=== PATIENT | female | born 1955 | race Two or more races ===

== ENCOUNTER 2023-07-29 10:15 | Inpatient (IN) | payer OTHER ==
[~2023-07-29] VITALS: Ht 149.9 cm; Wt 71.7 kg
[2023-08-07] MEDS ORDERED: CEFOXITIN SODIUM 2,000 MG VIAL IV ONE ×2 (06:43→08:30)
[2023-08-07] MEDS ORDERED: POVIDONE-IODINE 118 ML BOTT TOP ONE ×2 (07:05→08:30)
[2023-08-07] MEDS ORDERED: THROMBIN,HU/FIBRINOGEN/CALCIUM 10 ML SYRINGE TOP ONE ×2 (07:54→08:30)
[2023-08-07] MEDS ORDERED: MIRTAZAPINE45 MG (08:50)
[2023-08-07] MEDS ORDERED: BUPROPION XL150 MG (08:50)
[2023-08-07] MEDS ORDERED: BUPROPION XL300 MG (08:50)
[2023-08-07] MEDS ORDERED: RESTORIL30 MG (08:50)
[2023-08-07] MEDS ORDERED: FAMOTIDINE40 MG (08:50)
[2023-08-07] MEDS ORDERED: ALPRAZOLAM2 MG (08:50)
[2023-08-07] MEDS ORDERED: METOPROLOL SUCC50 MG (08:50)
[2023-08-07] MEDS ORDERED: DICLOFENAC POTA50 MG (08:51)
[2023-08-07] MEDS ORDERED: AMLODIPINE BESYL5 MG (08:51)
[2023-08-07] MEDS ORDERED: HYDROCHLOROTH12.5 MG (08:51)
[2023-08-07] MEDS ORDERED: LEVO-T25 MCG PO (08:51)
[2023-08-07] MEDS ORDERED: LOSARTAN POTAS100 MG (08:51)
[2023-08-07] MEDS ORDERED: ATORVASTATIN CA20 MG (08:51)
[2023-08-07] MEDS ORDERED: RINGERS SOLUTION,LACTATED 1,000 ML IV SCH (09:45)
[2023-08-07] MEDS ORDERED: MORPHINE SULFATE 4 MG/ML VIAL IV PRN (09:45)
[2023-08-07] MEDS ORDERED: FAMOTIDINE/PF 20 MG/2 ML VIAL IV SCH (09:45)
[2023-08-07] MEDS ORDERED: ONDANSETRON HCL 2 MG/ML VIAL IV PRN (09:45)
[2023-08-07] MEDS ORDERED: FAMOTIDINE/PF 20 MG/2 ML VIAL ONE (11:13)
[2023-08-07 11:57] LABS: HEMATOCRIT 39.8 % (36.0-45.00); HEMOGLOBIN 13.6 g/dL (12.0-15.00); MEAN CELL VOLUME 97.5 fL (80.00-100.00); MEAN CORPUSCULAR HEMOGLOBIN 33.2 pg (27.00-32.0); PLATELET COUNT 167 K/uL (150-450); RED BLOOD COUNT 4.08 M/uL (4.00-6.00); RED CELL DISTRIBUTION WIDTH 13.7 % (11.5-14.5)
[2023-08-07 14:09] LABS: CALCIUM 9.3 mg/dL (8.5-10.1); CREATININE SERUM 0.96 mg/dL (0.55-1.02); GFR 57.97; POTASSIUM 4.03 mEq/L (3.5-5.1)
[2023-08-07] MEDS ORDERED: ENALAPRILAT DIHYDRATE 2.5 MG/2 ML VIAL IV PRN (15:15)
[2023-08-07] MEDS ORDERED: KETOROLAC TROMETHAMINE 30 MG VIAL IV SCH (17:00)
[2023-08-07] MEDS ORDERED: ATORVASTATIN CALCIUM 20 MG TABLET PO SCH (17:00)
[2023-08-07] MEDS ORDERED: CEFOXITIN SODIUM 2,000 MG VIAL IV SCH (17:00)
[2023-08-07] MEDS ORDERED: TEMAZEPAM 15 MG CAPSULE PO SCH (21:00)
[2023-08-08 04:08] LABS: HEMATOCRIT 37.6 % (36.0-45.00); HEMOGLOBIN 12.5 g/dL (12.0-15.00); MEAN CELL VOLUME 96.3 fL (80.00-100.00); MEAN CORPUSCULAR HGB CONC 33.2 g/dl (32.0-36.0); PLATELET COUNT 138 K/uL (150-450)
[2023-08-08 04:27] LABS: CREATININE SERUM 1.02 mg/dL (0.55-1.02); GFR 54.05; POTASSIUM 4.04 mEq/L (3.5-5.1)
[2023-08-08] MEDS ORDERED: LEVOTHYROXINE SODIUM 25 MCG TABLET PO SCH (06:00)
[2023-08-08] MEDS ORDERED: BUPROPION HCL 150 MG TABLET.SA PO SCH (09:00)
[2023-08-08] MEDS ORDERED: METOPROLOL SUCCINATE 50 MG TAB.SR.24H PO SCH (09:00)
[2023-08-08] MEDS ORDERED: METOCLOPRAMIDE HCL 5 MG/ML VIAL IV SCH (09:00)
[2023-08-08] MEDS ORDERED: ENOXAPARIN SODIUM 40 MG/0.4 ML SYRINGE SUBCUTANEO SCH (09:00)
[2023-08-08] MEDS ORDERED: LOSARTAN POTASSIUM 100 MG TABLET PO SCH (09:00)
[2023-08-08 19:19] LABS: HEMATOCRIT 37.8 % (36.0-45.00); HEMOGLOBIN 12.7 g/dL (12.0-15.00); MEAN CELL VOLUME 97.6 fL (80.00-100.00); MEAN CORPUSCULAR HEMOGLOBIN 32.8 pg (27.00-32.0); MEAN CORPUSCULAR HGB CONC 33.6 g/dl (32.0-36.0); PLATELET COUNT 137 K/uL (150-450); RED BLOOD COUNT 3.87 M/uL (4.00-6.00); RED CELL DISTRIBUTION WIDTH 13.5 % (11.5-14.5)
[2023-08-08 19:40] LABS: CALCIUM 9.1 mg/dL (8.5-10.1); CREATININE SERUM 1.21 mg/dL (0.55-1.02); GFR 44.38; POTASSIUM 3.92 mEq/L (3.5-5.1)
[2023-08-09 02:39] LABS: HEMATOCRIT 29.7 % (36.0-45.00); HEMOGLOBIN 10.2 g/dL (12.0-15.00); MEAN CELL VOLUME 96.9 fL (80.00-100.00); MEAN CORPUSCULAR HEMOGLOBIN 33.4 pg (27.00-32.0); MEAN CORPUSCULAR HGB CONC 34.4 g/dl (32.0-36.0); RED BLOOD COUNT 3.07 M/uL (4.00-6.00); RED CELL DISTRIBUTION WIDTH 13.5 % (11.5-14.5)
[2023-08-09 02:40] LABS: PLATELET COUNT 106 K/uL (150-450)
[2023-08-09 02:55] LABS: CALCIUM 8.6 mg/dL (8.5-10.1); CREATININE SERUM 0.78 mg/dL (0.55-1.02); GFR 73.66; POTASSIUM 3.61 mEq/L (3.5-5.1)
== END 2023-08-09 11:21 | disposition home or self-care (01) | DRG 749 ==
LOC: OB/GYN 08-07 05:10 → O/R 08-07 05:10 → OB/GYN 08-07 07:00
PROVIDERS: Obstetrics & Gynecology; ADMIT Obstetrics & Gynecology Gynecologic Oncology; ATTEND Obstetrics & Gynecology Gynecologic Oncology
PROC: 07BC0ZZ Excision of Pelvis Lymphatic, Open Approach (ICD-10-PCS; 2023-08-07)
PROC: 07BD0ZZ Excision of Aortic Lymphatic, Open Approach (ICD-10-PCS; 2023-08-07)
PROC: 0DBN0ZZ Excision of Sigmoid Colon, Open Approach (ICD-10-PCS; 2023-08-07)
PROC: 0DBP0ZZ Excision of Rectum, Open Approach (ICD-10-PCS; 2023-08-07)
PROC: 0DTU0ZZ Resection of Omentum, Open Approach (ICD-10-PCS; 2023-08-07)
PROC: 3E1M38Z Irrigation of Peritoneal Cavity using Irrigating Substance, Percutaneous Approach (ICD-10-PCS; 2023-08-07)
PROC: 0DBW0ZZ Excision of Peritoneum, Open Approach (ICD-10-PCS; principal; 2023-08-07 07:00)
DX: C57.7 Malignant neoplasm of other specified female genital organs (principal); C78.5 Secondary malignant neoplasm of large intestine and rectum; C78.6 Secondary malignant neoplasm of retroperitoneum and peritoneum; Z20.822 Contact with and (suspected) exposure to COVID-19

== ENCOUNTER 2023-08-18 13:29 | Emergency (ER) | payer OTHER ==
[~2023-08-18] VITALS: Ht 149.9 cm; Wt 68.0 kg
[~2023-08-18 13:29] MED LIST: ALPRAZOLAM2 MG; AMLODIPINE BESYL5 MG; ATORVASTATIN CA20 MG; BUPROPION XL150 MG; BUPROPION XL300 MG; DICLOFENAC POTA50 MG; FAMOTIDINE40 MG; HYDROCHLOROTH12.5 MG; LEVO-T25 MCG PO; LOSARTAN POTAS100 MG; METOPROLOL SUCC50 MG; MIRTAZAPINE45 MG; RESTORIL30 MG
[2023-08-18 15:26] LABS: HEMATOCRIT 36.8 % (36.0-45.00); HEMOGLOBIN 12.4 g/dL (12.0-15.00); MEAN CELL VOLUME 96.9 fL (80.00-100.00); MEAN CORPUSCULAR HEMOGLOBIN 32.7 pg (27.00-32.0); MEAN CORPUSCULAR HGB CONC 33.7 g/dl (32.0-36.0); PLATELET COUNT 273 K/uL (150-450); RED BLOOD COUNT 3.79 M/uL (4.00-6.00); RED CELL DISTRIBUTION WIDTH 14.3 % (11.5-14.5)
[2023-08-18 15:47] LABS: ALBUMIN 3.8 gm/dL (3.4-5.0); BILIRUBIN TOTAL 0.73 mg/dL (0.3-1.2); CALCIUM 10.6 mg/dL (8.5-10.1); CREATININE SERUM 1.1 mg/dL (0.55-1.02); GFR 49.54; GLOBULINA 4.4 G/DL (2.4-3.5); POTASSIUM 4.15 mEq/L (3.5-5.1); TOTAL PROTEIN 8.2 gm/dL (6.4-8.2)
[2023-08-18 16:11] LABS: D DIMER 14.9 MG/L; PARTIAL THROMBOPLASTIN TIME 23.9 SECONDS (22.0-34.0)
[2023-08-18 16:13] LABS: INR < 0.93; PROTHROMBIN TIME 9.8 SECONDS (9.0-11.5)
== END 2023-08-18 17:51 | disposition home or self-care (01) ==
LOC: ER 13:30
PROVIDERS: General Practice
DX: R20.0 Anesthesia of skin (principal); R20.2 Paresthesia of skin; R10.9 Unspecified abdominal pain; Z88.6 Allergy status to analgesic agent

== ENCOUNTER 2023-08-19 06:30 | Emergency (ER) | payer OTHER ==
[~2023-08-19] VITALS: Ht 149.9 cm; Wt 71.7 kg
== END 2023-08-19 11:44 | disposition home or self-care (01) ==
LOC: ER 06:30
DX: R53.81 Other malaise (principal); R20.0 Anesthesia of skin; I10 Essential (primary) hypertension; E03.8 Other specified hypothyroidism; Z88.6 Allergy status to analgesic agent